=== PATIENT | male | born 1990 | race Caucasian/White ===

== ENCOUNTER 2016-06-25 20:55 | Emergency (ER) | payer OTHER | END 2016-06-25 21:59 | disposition home or self-care (01) | LOC: FER 20:55 | DX: L02.31 Cutaneous abscess of buttock (principal); L03.317 Cellulitis of buttock; F17.210 Nicotine dependence, cigarettes, uncomplicated | CPT/HCPCS: 87070; 87077; 87205 ==

== ENCOUNTER 2016-09-09 14:08 | Emergency (ER) | payer OTHER | END 2016-09-09 16:25 | disposition home or self-care (01) | LOC: FER 14:08 | DX: L02.31 Cutaneous abscess of buttock (principal); F17.210 Nicotine dependence, cigarettes, uncomplicated | CPT/HCPCS: 87070; 87205 ==

== ENCOUNTER 2020-09-06 07:56 | Emergency (ER) | payer OTHER ==
[~2020-09-06 07:56] MED LIST: MOBIC7.5 M1 PO; ZOFRAN4 MG PO
[2020-09-06] MEDS ORDERED: ROBAXIN750 MG PO (09:12)
== END 2020-09-06 09:23 | disposition home or self-care (01) ==
LOC: FER 07:56
DX: S29.012A Strain of muscle and tendon of back wall of thorax, initial encounter (principal); F17.200 Nicotine dependence, unspecified, uncomplicated; X50.9XXA Other and unspecified overexertion or strenuous movements or postures, initial encounter; Y92.89 Other specified places as the place of occurrence of the external cause; Y99.0 Civilian activity done for income or pay
CPT/HCPCS: 99283

== ENCOUNTER 2020-12-20 20:54 | Emergency (ER) | payer OTHER ==
[~2020-12-20 20:54] MED LIST changes: +ROBAXIN750 MG PO
[2020-12-20 21:34] LABS: HCT 43.7 % (42.0-52.0); HGB 15.3 g/dl (13.2-18.0); MCH 32.8 pg (25.0-31.0); MCV 93.8 fL (78.0-100.0); MPV 11.1 fL (6.0-9.5); RBC 4.66 M/uL (4.70-6.00); RDW 12.3 % (11.5-14.0); WBC 13.8 K/uL (4.0-10.5)
[2020-12-20 21:54] LABS: BUN/CREAT RATIO (CALC) 13.5 RATIO; CREATININE 0.96 mg/dL (0.67-1.17); POTASSIUM 4.2 mmol/L (3.5-5.1)
[2020-12-20 22:09] LABS: LACTIC ACID 1.8 mmol/L (0.4-1.9)
[2020-12-20] MEDS ORDERED: AUGMENTIN 875-1 EACH PO (23:08)
== END 2020-12-20 23:30 | disposition home or self-care (01) ==
LOC: FER 20:54
PROVIDERS: Emergency Medicine
DX: K61.1 Rectal abscess (principal)
CPT/HCPCS: 36415; 80048; 83605; 90471; 90715; 96365; 96375; J1170; J2405; J7030; Q9967

== ENCOUNTER 2021-04-22 12:24 | Emergency (ER) | payer SELFPAY ==
[~2021-04-22 12:24] MED LIST changes: +AUGMENTIN 875-1 EACH PO
[2021-04-22 13:21] LABS: BASOPHIL 0.5 % (0-2); EOSINOPHIL 3.4 % (0-5); HCT 42.2 % (42.0-52.0); HGB 14.6 g/dl (13.2-18.0); LYMPHOCYTE 4.4 % (15-48); MCH 32.4 pg (25.0-31.0); MCHC 34.6 g/dL (32.0-36.0); MCV 93.6 fL (78.0-100.0); MONOCYTE 12.5 % (0-12); MPV 11.3 fL (6.0-9.5); NEUTROPHIL 78.9 % (41-80); NRBC 0; PLT 189 K/uL (150-400); RBC 4.51 M/uL (4.70-6.00); RDW 12.1 % (11.5-14.0); WBC 8.8 K/uL (4.0-10.5)
[2021-04-22 13:32] LABS: BUN/CREAT RATIO (CALC) 10.1 RATIO; CREATININE 1.09 mg/dL (0.67-1.17); POTASSIUM 4.1 mmol/L (3.5-5.1)
== END 2021-04-22 14:29 | disposition home or self-care (01) ==
LOC: FER 12:24
PROVIDERS: Emergency Medicine
DX: U07.1 COVID-19 (principal); J40 Bronchitis, not specified as acute or chronic
CPT/HCPCS: 36415; 71045; 80048; 85025; U0002